=== PATIENT | female | born 1955 | race Caucasian/White ===

== ENCOUNTER 2017-01-04 08:08 | Emergency (ER) | payer BC ==
[~2017-01-04] VITALS: Ht 160 cm; Wt 74.2 kg
[~2017-01-04 08:08] MED LIST: PROZAC20 MG PO
[2017-01-04] MEDS ORDERED: MOTRIN600 MG PO (09:33)
[2017-01-04] MEDS ORDERED: ULTRAM50 MG PO (09:33)
[2017-01-04 11:35] VITALS: BP 147/91
== END 2017-01-04 11:36 | disposition home or self-care (01) ==
LOC: EME 08:08
PROC: 2W3CX1Z Immobilization of Right Lower Arm using Splint (ICD-10-PCS; principal; 2017-01-04)
DX: S52.91XA Unspecified fracture of right forearm, initial encounter for closed fracture (principal); W17.89XA Other fall from one level to another, initial encounter; Y92.002 Bathroom of unspecified non-institutional (private) residence as the place of occurrence of the external cause; M85.841 Other specified disorders of bone density and structure, right hand
CPT/HCPCS: 73110; 73130; 99281; 99283